=== PATIENT | female | born 2000 | race Caucasian/White ===

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

== ENCOUNTER → 2020-10-28 | Outpatient (CLI) | payer BC ==
[~2020-10-28] MED LIST: PHENERGAN 25 MG25 M1 PO
== END ==
LOC: LAB 17:18
DX: D64.9 Anemia, unspecified (principal)
CPT/HCPCS: 83540; 83550

== ENCOUNTER → 2020-12-20 | Outpatient (CLI) | payer BC ==
[2020-12-20 14:08] LABS: HEMOGLOBIN 14.4 gm/dl (12.3-15.3); RED BLOOD COUNT 4.82 M/UL (4.00-5.10); WHITE BLOOD COUNT 6.2 K/UL (4.5-11.0)
[2020-12-20 14:36] LABS: BUN/CREATININE RATIO 17 (0-10)
== END ==
LOC: LAB 13:28
PROVIDERS: Nurse Practitioner Family
DX: M25.561 Pain in right knee (principal); R51.9 Headache, unspecified
CPT/HCPCS: 36415; 73562; 80053; 85025